=== PATIENT | male | born 1990 | race Two or more races ===

== ENCOUNTER 2024-05-21 09:42 | Emergency (ER) | payer OTHER ==
[~2024-05-21] VITALS: Ht 175.3 cm; Wt 94.0 kg
[2024-05-21 11:20] VITALS: BP 129/62; PULSE 76; RESP 16; TEMP 97.6; O2SAT 98
== END 2024-05-21 11:22 | disposition home or self-care (01) ==
LOC: ER 09:43
DX: R68.84 Jaw pain (principal); R05.9 Cough, unspecified; F17.200 Nicotine dependence, unspecified, uncomplicated
CPT/HCPCS: 71046; 99283

== ENCOUNTER 2025-01-17 00:01 | Emergency (ER) | payer OTHER ==
[~2025-01-17] VITALS: Ht 175.3 cm; Wt 78.0 kg
--- NOTE | 2025-01-17 00:28 | Physician Documentation ---
History of Present Illness ~ Chief Complaint: Rib pain Stated Complaint: LT RIB PAIN Time Seen by MD: 00:27 HPI Who presents to the emergency room with three-week history of left-sided rib pain. Associated fever. Tetanus within 5 Years?: No Allergies: Coded Allergies: No Known Allergies (Unverified , 01/17/25) Active Prescriptions See Medication Reconciliation Form. Past Medical History Smoking Status: Unknown if ever smoked Review of Systems ROS All review of systems negative except as per HPI Physical Exam Vital Signs: Temperature: 97.6, Source: Temporal, Heart Rate: 91, Respiratory Rate: 15, BP: 132/96, Pulse Oximetry: 99, Weight: 78.000 Physical Exam General: Patient is awake, alert, oriented x4 in no acute distress and well appearing.~ Head: Normocephalic and atraumatic. Eyes: Conjunctival normal. EOMI. PERRL. ENT: Mucous membranes moist. Neck: Supple, trachea is midline. Chest: Clear to auscultation bilaterally without rales, rhonchi, or wheezes. There is no accessory muscle use or retractions. Cardiac: RRR without murmurs, gallops, or rubs. Progress Results/Orders Results/Orders Orders - JAE LAW MD Chest,Single View (01/17/25 00:50) Completed Orders - JAE LAW MD Chest,Single View (01/17/25 00:50) Vital Signs 01/17/25 00:11 Temp 97.6 Pulse 91 Resp 15 B/P (MAP) 132/96 Pulse Ox 99 EKG/XRAY/CT/US/VASC/MRI Chest X-Ray : Additional Comments Chest x-ray interpreted by myself is negative for fractures, effusions, pneumothorax and that has normal cardiac silhouette Medical Decision Making Additional information obtaine: N/A Findings Patient presented to the emergency room with left-sided rib pain that has per HPI. Differentials include but are not limited to costochondritis, pneumothorax, tuberculosis, ACS. Chest x-ray reassuring. Tenderness to palpation that has reassuring he had not feel patient requires cardiac workup. Rice therapy discussed. Differential Dx:Considerations: Include: Chest wall contusion, Flail chest, Myocardial contusion, Pneumothorax, Pulmonary contusion, Rib fracture, Renal contusion, Splenic fracture, Tension pneumothorax, Other Departure Disposition: 01 HOME / SELF CARE / HOMELESS Impression: Primary Impression: Rib pain Condition: Stable Discharge Instructions: Rib Contusion Additional Instructions: You may take ibuprofen and Tylenol both together. This should heal in time Referrals: NO PRIMARY CARE PROVIDER (PCP) Signature Scribe Signature: No scribe Attestation: The note accurately reflects work and decisions made by me.Jae Law MD 01/17/25 01:01 JAE LAW MD Jan 17, 2025 00:28
[2025-01-17] MEDS ORDERED: ibuprofen tablet 400 MG TABLET PO ONE (01:05)
--- NOTE | 2025-01-17 01:12 | RADIOLOGY REPORT ---
CHEST RADIOGRAPH Indication: left sided pain Technique: Single frontal view of the chest was obtained COMPARISON: DI CHEST,TWO VIEWS on DOS: 05/21/24 FINDINGS: Lines and Tubes: None Lungs: Clear Pleura: No effusion. No pneumothorax. Cardiomediastinal contours: Unremarkable Bones: Unremarkable IMPRESSION: 1. No acute disease.
[2025-01-17 01:18] VITALS: BP 132/96; PULSE 91; RESP 15; TEMP 97.6; O2SAT 99
== END 2025-01-17 01:20 | disposition home or self-care (01) ==
LOC: ER 00:04
DX: R07.89 Other chest pain (principal); R50.9 Fever, unspecified
CPT/HCPCS: 71045; 99283